=== PATIENT | male | born 1980 | race Caucasian/White ===

== ENCOUNTER 2021-08-17 21:22 | Outpatient (REF) | payer OTHER, MEDICARE, SELFPAY ==
[2021-08-19 14:38] LABS: Chlamydia Result Negative (Negative); GC Result Negative (Negative)
== END 2021-08-17 21:23 | disposition home or self-care (01) ==
LOC: LBN 21:22
PROVIDERS: Visit Provider Nurse Practitioner Family
DX: K59.00 Constipation, unspecified (principal)
CPT/HCPCS: 87491; 87591